=== PATIENT | male | born 1935 | race Caucasian/White ===

== ENCOUNTER 2016-06-30 07:59 | Day surgery (SDC) | payer MEDICARE, OTHER ==
[~2016-06-30 07:59] MED LIST: Bupivacaine 0.5%/EPINEPHrine 1:200,000 30 ML SDV ONE; Water For Injection,Bacteriostatic 30 ML MDV ONE; ceFAZolin 1 GM Vial ONE
[2016-06-30] MEDS ORDERED: Lactated Ringers 1,000 ML IV SCH (08:00)
[2016-06-30] MEDS ORDERED: Sodium Chloride 0.9% 5 ML Syringe FLUSH PRN (08:00)
[2016-06-30] MEDS ORDERED: Lactated Ringers 1,000 ML ONE (08:01)
[2016-06-30] MEDS ORDERED: Propofol 200 MG/20 ML SDV ONE (08:01)
[2016-06-30] MEDS ORDERED: Midazolam 1 MG/ML 2 ML SDV ONE (08:01)
[2016-06-30] MEDS ORDERED: ceFAZolin 1 GM Vial ONE ×2 (08:01→09:58)
[2016-06-30] MEDS ORDERED: fentaNYL 250 MCG/5 ML SDV ONE (08:01)
[2016-06-30] MEDS ORDERED: ePHEDrine 50 MG/ML SDV ONE (08:31)
[2016-06-30] MEDS ORDERED: ceFAZolin 1 GM Vial IV ONE (08:56)
[2016-06-30] MEDS ORDERED: Glycopyrrolate 0.2 MG/ML 5 ML MDV IV ONE (08:56)
[2016-06-30] MEDS ORDERED: Ondansetron 4 MG/2 ML SDV IV ONE (08:56)
[2016-06-30] MEDS ORDERED: Dexamethasone 4 MG/ML SDV IV ONE (08:56)
[2016-06-30] MEDS ORDERED: Succinylcholine 200 MG/10 ML MDV IV ONE (08:56)
[2016-06-30] MEDS ORDERED: Propofol 200 MG/20 ML SDV IV ONE (08:56)
[2016-06-30] MEDS ORDERED: ePHEDrine 50 MG/ML SDV IV ONE (08:56)
[2016-06-30] MEDS ORDERED: Midazolam 1 MG/ML 2 ML SDV IV ONE (08:56)
[2016-06-30] MEDS ORDERED: Rocuronium 50 MG/5 ML Vial IV ONE (08:56)
[2016-06-30] MEDS ORDERED: Neostigmine Methylsulfate 10 MG/10 ML MDV IV ONE (08:56)
[2016-06-30] MEDS ORDERED: fentaNYL 250 MCG/5 ML SDV IV ONE (08:56)
[2016-06-30] MEDS ORDERED: Water For Injection,Bacteriostatic 30 ML MDV ONE (09:58)
[2016-06-30] MEDS ORDERED: Bupivacaine 0.5%/EPINEPHrine 1:200,000 30 ML SDV INFILT ONE (09:59)
--- NOTE | 2016-06-30 11:08 | PCM.OPNOTE ---
- General Post-Op/Procedure Note Date of Surgery/Procedure: 06/30/16 Operative Procedure(s): Repair of recurrent left inguinal hernia. Findings: the patient had a recurrence of the left inguinal hernia. The hernia was the indirect variety. Primary Surgeon: Yrvose Lama Complications: None Condition: Good Free Text/Narrative:: INFORMED CONSENT: The patient is here today for elective left recurrent inguinal herniorrhaphy. The operative procedure, anesthesia and risks of both are completely explained to the patient. These include infection, pain, bleeding , recurrence, numbness and other unknown complications. The patient wished to proceed. The patient was kept in the supine position and the left inguinal area was thoroughly prepped and draped in the usual fashion. An incision was made over the left inguinal area, parallel to the inguinal ligament. The skin incision was deepened through the subcutaneous tissue, deep fascia and the external oblique was opened along the line of the skin incision. The cord structures were identified and kept out of harms way. We also identified the ilioinguinal nerve and the inguinal branch of the genitofemoral nerve. These two structures were kept out of harms way as well. We then dissected the medial portion of the cord and there was a fairly significant hernial sac which was opened. The contents were omental tissue and the sigmoid colon I carefully pushed both structures back into the abdominal cavity. A high ligation of the sac was performed with 0 silk sutures. The excess sac was excised and sent away for histology. Palpation of the medial portion of the floor indicated a defect. A Marlex mesh was then cut down to size and placed to fortify the defect of the floor and the direct portion of the hernia. The mesh was attached to the conjoined tendon superiorly, Arnel's ligament medially and the reflected portion of the inguinal ligament inferiorly. the previously present mesh was left intact. The wound was irrigated, small bleeders were cauterized and the external oblique was closed over the cord structures using running 0 silk sutures. The subcutaneous tissue was closed with 0 Polysorb suture and the skin was closed using 4.0 Polysorb suture. A Sterile pressure dressing was applied, the patient tolerated the procedure well and there were no operative complications. Blood loss was negligible. Sponge, needle and instrument count was correct. The patient was transferred to the recovery room in excellent condition.
[2016-06-30] MEDS ORDERED: Aspirin 81 MG Tab.Chew PO SCH (12:00)
[2016-06-30] MEDS ORDERED: Morphine 4 MG/ML Syringe IVPUSH PRN (12:05)
[2016-06-30] MEDS ORDERED: Ondansetron 4 MG/2 ML SDV IVPUSH ONE (12:10)
[2016-06-30 14:25] VITALS: BP 104/71
[2016-07-01] MEDS ORDERED: IRBESARTAN PO SCH (09:00)
[2016-07-01] MEDS ORDERED: Tamsulosin 0.4 MG Cap.ER PO SCH (09:00)
[2016-07-01] MEDS ORDERED: Finasteride 5 MG Tab PO SCH (09:00)
[2016-07-01] MEDS ORDERED: Non-Formulary Medication 1 Each (Multivitamin With Minerals [Multiple Vitamin] 1 TAB) PO SCH (09:00)
[2016-07-01] MEDS ORDERED: HYDROCHLOROTHIAZIDE PO SCH (09:00)
[2016-07-01] MEDS ORDERED: [UNRECOGNIZED DRUG - OTHER] PO SCH (09:00)
== END 2016-06-30 14:45 | disposition home or self-care (01) ==
LOC: KA.SDS 07:59
PROVIDERS: ATTEND Family Medicine
DX: K40.91 Unilateral inguinal hernia, without obstruction or gangrene, recurrent (principal); I10 Essential (primary) hypertension; G47.33 Obstructive sleep apnea (adult) (pediatric); K21.9 Gastro-esophageal reflux disease without esophagitis; C67.9 Malignant neoplasm of bladder, unspecified; Z79.899 Other long term (current) drug therapy
CPT/HCPCS: 49520; J0330; J0690; J1100; J2250; J2270; J2405; J2704; J2710; J3010; J7120; 00830; 88302; C1781; J3490